=== PATIENT | male | born 1965 | race American Indian/Alaskan Native ===

== ENCOUNTER 2017-03-08 17:14 | Emergency (ER) | payer MEDICAID ==
[2017-03-08] MEDS ORDERED: NACL 0.9% 1000 ML 1,000 ML IV ONE ×2 (19:21→20:35)
[2017-03-08] MEDS ORDERED: CLEOCIN 900 MG/50 mL 900 MG/50 ML BAG IV ONE (19:21)
[2017-03-08 20:04] LABS: Basophils % (Auto) 0.2 % (0.0-1.8); Eosinophils % (Auto) 1.6 % (0.0-4.3); Hematocrit 41.7 % (35.5-45.6); Hemoglobin 14.5 gm/dl (11.8-15.2); Mean Corpuscular HGB Conc 35 % (32-34); Mean Corpuscular Hemoglobin 33 pg (28-32); Mean Corpuscular Volume 96 fl (84-94); Red Blood Count 4.33 M/mm3 (3.65-5.03); Red Cell Distribution Width 13.8 % (13.2-15.2); White Blood Count 8.2 K/mm3 (4.5-11.0)
[2017-03-08 20:14] LABS: Alanine Aminotransferase 34 units/L (7-56); Albumin 3.9 g/dL (3.9-5); Alkaline Phosphatase 163 units/L (35-129); Anion Gap 20 mmol/L; BUN/Creatinine Ratio 13.33; Blood Urea Nitrogen 8 mg/dL (9-20); Calcium 8.8 mg/dL (8.4-10.2); Carbon Dioxide 24 mmol/L (22-30); Chloride 96.9 mmol/L (98-107); Glucose 107 mg/dL (75-100); Potassium 3.7 mmol/L (3.6-5.0); Sodium 137 mmol/L (137-145); Total Protein 7.7 g/dL (6.3-8.2)
[2017-03-08 20:27] VITALS: BP 134/73
[2017-03-08] MEDS ORDERED: DECADRON IV ONE (20:35)
[2017-03-08 20:37] LABS: Platelet Count 74 K/mm3 (140-440)
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
== END 2017-03-08 21:46 | disposition home or self-care (01) ==
LOC: ED 17:14
DX: L03.116 Cellulitis of left lower limb (principal); L23.7 Allergic contact dermatitis due to plants, except food; J45.909 Unspecified asthma, uncomplicated; F12.10 Cannabis abuse, uncomplicated; Z87.891 Personal history of nicotine dependence
CPT/HCPCS: 36415; 80053; 82140; 85025; 87040; 96361; 96365; 96375; 99283; J1100; J7030

== ENCOUNTER 2017-04-01 07:35 | Emergency (ER) | payer MEDICAID ==
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
[2017-04-01] MEDS ORDERED: ZOFRAN IV ONE (09:56)
[2017-04-01] MEDS ORDERED: DILAUDID IV ONE (09:56)
[2017-04-01] MEDS ORDERED: BOOSTRIX IM ONE ×2 (09:56→12:15)
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
[2017-04-01 10:35] LABS: Hematocrit 39.2 % (35.5-45.6); Hemoglobin 13.8 gm/dl (11.8-15.2); Mean Corpuscular HGB Conc 35 % (32-34); Mean Corpuscular Hemoglobin 34 pg (28-32); Mean Corpuscular Volume 96 fl (84-94); Red Blood Count 4.07 M/mm3 (3.65-5.03); Red Cell Distribution Width 14.1 % (13.2-15.2)
[2017-04-01 10:37] LABS: Platelet Count 72 K/mm3 (140-440)
[2017-04-01 10:56] LABS: Alanine Aminotransferase 39 units/L (7-56); Albumin 3.5 g/dL (3.9-5); Alkaline Phosphatase 195 units/L (35-129); Anion Gap 16 mmol/L; BUN/Creatinine Ratio 13.33; Blood Urea Nitrogen 8 mg/dL (9-20); Calcium 8.3 mg/dL (8.4-10.2); Carbon Dioxide 24 mmol/L (22-30); Glucose 114 mg/dL (75-100); Potassium 3.9 mmol/L (3.6-5.0); Sodium 138 mmol/L (137-145)
--- NOTE | 2017-04-01 11:06 | XRay Report ---
BILATERAL HANDS, 2 VIEWS History: Bilateral hand pain. Findings: The bony structures and joint spaces are within normal limits. There is no evidence for fracture, bone lesion or erosive joint pathology. The soft tissues are unremarkable. Impression: Unremarkable bilateral hands.
[2017-04-01] MEDS ORDERED: ZOFRAN ONE (12:14)
[2017-04-01] MEDS ORDERED: DILAUDID ONE (12:14)
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
[2017-04-01] MEDS ORDERED: SUBLIMAZE IV ONE (12:52)
[2017-04-01 13:55] VITALS: BP 135/72
[2017-04-01] MEDS ORDERED: NACL 0.9% 500 ML IR ONE (14:39)
== END 2017-04-01 15:00 | disposition home or self-care (01) ==
LOC: ED 07:35
DX: S22.31XA Fracture of one rib, right side, initial encounter for closed fracture (principal); M25.552 Pain in left hip; M25.511 Pain in right shoulder; J45.909 Unspecified asthma, uncomplicated; F17.200 Nicotine dependence, unspecified, uncomplicated; F12.10 Cannabis abuse, uncomplicated; Z88.8 Allergy status to other drugs, medicaments and biological substances; V29.49XA Motorcycle driver injured in collision with other motor vehicles in traffic accident, initial encounter; Y93.89 Activity, other specified; Y99.8 Other external cause status; Y92.413 State road as the place of occurrence of the external cause
CPT/HCPCS: 36415; 70450; 71020; 71275; 73030; 73120; 73502; 74177; 80053; 82550; 84484; 85027; 90471; 90715; 93005; 93010; 96374; 96375; 99285; J1170; J2405; J3010; Q9967